=== PATIENT | female | born 1985 | race Two or more races ===

== ENCOUNTER 2019-05-06 11:42 | Emergency (ER) | payer MEDICAID ==
[~2019-05-06] VITALS: Ht 149.9 cm; Wt 56.7 kg
[2019-05-06 15:21] LABS: Urine Bacteria NONE SEEN /hpf (None Seen); Urine Blood TRACE /uL (Negative); Urine Specific Gravity 1.004 (1.001-1.035); Urine WBC 5 /hpf (0 - 5)
[2019-05-06 16:59] VITALS: BP 124/76
== END 2019-05-06 17:01 | disposition home or self-care (01) ==
LOC: ER 11:42
DX: D25.9 Leiomyoma of uterus, unspecified (principal)
CPT/HCPCS: 76856; 81001